=== PATIENT | female | born 1945 | race Caucasian/White ===

== ENCOUNTER 2020-08-11 15:29 | Emergency (ER) | payer MEDICARE ==
[2020-08-12 10:57] LABS: SARS-CoV-2 MS2 Positive; SARS-CoV-2 N Gene Positive; SARS-CoV-2 S Gene Negative; SARS-CoV-2 by NAA DETECTED (NotDetected); SARS-CoV-2 orf1ab Positive
== END 2020-08-11 16:10 | disposition home or self-care (01) ==
LOC: MADERS 15:29
DX: U07.1 COVID-19 (principal)
CPT/HCPCS: 87635; 99283; U0003